=== PATIENT | female | born 1990 | race Caucasian/White ===

== ENCOUNTER 2017-03-31 07:47 | Emergency (ER) | payer OTHER ==
[~2017-03-31] VITALS: Ht 157.5 cm; Wt 56.7 kg
[2017-03-31 07:47] VITALS: BP_SYST 119
--- NOTE | 2017-03-31 07:47 | NUR ---
BROUGHT BACK TO BED #7 AND TRIAGED. REPORT GIVEN TO DIXIE
--- NOTE | 2017-03-31 07:50 | NUR ---
Note undone in EDM - 03/31/17 at 0843 by [email or web address] Pt presents to ER c/o cough and sinus congestion x 1 week. Pt also reports being febrile and having body aches. Recorded temp upon assessment is 100.8. Pt denies N/V/D. Pt reports taking Mucinex and Ibuprofen at home. Pt reports history of anemia. No acute distress noted; AOX4; NKDA.
--- NOTE | 2017-03-31 08:00 | NUR ---
ER at bedside examining patient.
--- NOTE | 2017-03-31 08:02 | NUR ---
Pt presents to ER c/o flu like symptoms for over a month. Pt reports fever, body aches, congestion, and productive cough. Pt denies N/V. Pt denies significant medical history. Pt reportedly took Mucinex at home for symptoms with little relief. No acute distress noted; AOX4; NKDA; at bedside.
--- NOTE | 2017-03-31 08:30 | NUR ---
Darian colindres in ED - 03/31/17 at 0843 by [email or web address] MARCELLA Joel at bedside examining patient.
--- NOTE | 2017-03-31 09:05 | NUR ---
Patient given written and verbal discharge instructions and verbalizes understanding. ER MD discussed with patient the results and treatment provided. Patient in stable condition. ID arm band removed. IV catheter removed intact and dressing applied, no active bleeding. Rx of Promethazine Hydrochloride with Codeine Phosphate & Augmentin given. Patient educated on pain management and to follow up with PMD. Pain Scale 2/10. Opportunity for questions provided and answered.
[2017-03-31 09:06] VITALS: BP_SYST 119
== END 2017-03-31 09:06 | disposition home or self-care (01) ==
LOC: SED 07:47
DX: J06.9 Acute upper respiratory infection, unspecified (principal)
CPT/HCPCS: 99283

== ENCOUNTER 2018-01-07 15:40 | Emergency (ER) | payer OTHER ==
[~2018-01-07] VITALS: Ht 157.5 cm; Wt 59.0 kg
[2018-01-07 15:59] VITALS: BP_SYST 108
[2018-01-07 19:29] VITALS: BP_SYST 108
== END 2018-01-07 19:29 | disposition home or self-care (01) ==
LOC: SED 15:40
DX: R29.810 Facial weakness (principal); R20.2 Paresthesia of skin
CPT/HCPCS: 70450-TC; 99284